=== PATIENT | female | born 1955 | race Caucasian/White ===

== ENCOUNTER 2023-12-05 13:36 | Emergency (ER) | payer MEDICARE ==
[2023-12-05] MEDS ORDERED: Fluorescein Opthalmic Strip ONE (15:14)
[2023-12-05 16:20] LABS: #Basophils 0.06 10x3/uL (0.0-0.2); #Eosinphils 0.11 10x3/uL (0.0-0.5); #Monocytes 0.56 10x3/uL (0.0-1.1); #Neutrophils 4.92 10x3/uL (1.5-8.4); %Eosinophils 1.8 % (0.0-6.0); %Lymphocytes 8.5 % (18.0-47.0); %Neutrophils 79.4 % (40.0-75.0); Hematocrit 47.4 % (34.9-44.5); Hemoglobin 15.6 g/dL (12.0-15.5); Mean Corpuscular HGB CONC 32.9 g/dL (32.0-36.0); Mean Corpuscular Hemoglobin 30.8 pg (27.0-33.0); Mean Corpuscular Volume 93.5 fL (81.6-98.3); Mean Platelet Volume 9.2 fL (7.4-10.4); Platelet Count 326 10x3/uL (150-450); RBC Distribution Width 12.7 % (11.5-14.5); Red Blood Cell (RBC) Count 5.07 10x6/uL (3.90-5.03); White Blood Cell (WBC) Count 6.2 10x3/uL (3.5-10.5)
[2023-12-05 16:35] LABS: ALT (SGPT) 16 U/L (8-55); AST (SGOT) 21 U/L (5-34); Albumin 4.2 g/dL (3.4-4.8); Alkaline Phosphatase 80 U/L (40-110); Anion Gap 19 mmol/L (10-20); BUN (Urea Nitrogen) 17 mg/dL (9.8-20.1); Bilirubin, Total 0.5 mg/dL (0.2-1.2); Calc. Creatinine Clearance 0 mL/min (70-130); Calcium 9.7 mg/dL (7.8-10.44); Carbon Dioxide 20 mmol/L (23-31); Chloride 102 mmol/L (98-107); Estimated GFR 59; Globulin 3.4 g/dL (2.4-3.5); Glucose 105 mg/dL (80-115); Potassium 4.7 mmol/L (3.5-5.1); Protein, Total 7.6 g/dL (5.8-8.1); Sodium 136 mmol/L (136-145)
[2023-12-05 16:39] LABS: Troponin I Less than 0.010 ng/mL (< 0.028)
== END 2023-12-05 17:30 | disposition home or self-care (01) ==
LOC: CSHERS 13:36
DX: B02.30 Zoster ocular disease, unspecified (principal); I10 Essential (primary) hypertension; E78.5 Hyperlipidemia, unspecified; E11.9 Type 2 diabetes mellitus without complications
CPT/HCPCS: 80053; 83605; 84484; 85025; 93005